=== PATIENT | female | born 1985 | race Two or more races ===

== ENCOUNTER 2022-11-29 12:12 | Outpatient (CLI) | payer OTHER, SELFPAY ==
--- NOTE | 2022-11-29 12:15 | CRLHL7_ITS ---
For Patients: As a result of the Century Cures Act, medical imaging exams and procedure reports are released immediately into your electronic medical record. You may view this report before your referring provider. If you have questions, please contact your health care provider. INDICATION: First trimester scan, establish dates. COMPARISON: None. TECHNIQUE: Real-time cristobal-scale imaging of the pelvis was performed. FINDINGS: Sonographic imaging demonstrates a single living intrauterine gestation. The embryo demonstrates a regular cardiac rate measuring 161 beats per minute. The embryo`s crown-rump length measurement of 2.7 cm corresponds to a gestational age of 9 weeks 3 days with a sonographic due date of 07/01/2023. There is a normal-appearing yolk sac. There are no gross abnormalities noted within the embryo at this early state of development. The gestational sac is somewhat prominent measuring 5.9 cm, 13 weeks 0 days and contains internal echoes. There is no evidence of a perigestational hemorrhage. The amount of fluid within the sac appears appropriate for gestational age. The cervix is closed. The myometrium appears normal. The ovaries are not visualized. There are no suspicious fluid collections noted in the cul-de-sac. IMPRESSION: Single living intrauterine with sonographic gestational age 9 weeks 3 days and sonographic due date of 07/01/2023. Gestational sac is disproportionately enlarged and contains internal echoes, of uncertain significance. Follow-up at 12 weeks may be useful. Dictated by Mehdi Lindsey MD @ 11/29/2022 1:03:10 PM (Electronically Signed)
== END 2022-11-29 12:13 | disposition home or self-care (01) ==
LOC: US 12:13
PROVIDERS: PCP Family Medicine; Visit Provider Physician Assistant
DX: Z34.91 Encounter for supervision of normal pregnancy, unspecified, first trimester (principal); Z3A.09 9 weeks gestation of pregnancy
CPT/HCPCS: 76817; 86592; 86703; 86762; 86787; 86803; 86850; 86900; 86901; 87086; 87340; 87491; 87591

== ENCOUNTER 2023-04-18 09:57 | Outpatient (CLI) | payer OTHER, SELFPAY | END 2023-04-18 09:58 | disposition home or self-care (01) | PROVIDERS: PCP Family Medicine; Visit Provider Obstetrics & Gynecology | DX: O26.892 Other specified pregnancy related conditions, second trimester (principal); Z67.91 Unspecified blood type, Rh negative | CPT/HCPCS: 86592; 86850; J2791 ==

== ENCOUNTER 2023-05-06 09:27 | Outpatient (RCR) | payer OTHER, SELFPAY | END 2023-07-22 14:16 | disposition home or self-care (01) | PROVIDERS: PCP Family Medicine; Visit Provider Obstetrics & Gynecology | DX: O99.891 Other specified diseases and conditions complicating pregnancy (principal); M54.50 Low back pain, unspecified; R26.2 Difficulty in walking, not elsewhere classified; R29.3 Abnormal posture; R53.1 Weakness; Z51.89 Encounter for other specified aftercare | CPT/HCPCS: 97110; 97161 ==

== ENCOUNTER 2023-05-07 08:30 | Outpatient (CLI) | payer OTHER, SELFPAY | END 2023-05-07 08:31 | disposition home or self-care (01) | LOC: NFLDREF 05-09 10:32 | PROVIDERS: PCP Family Medicine; Referring Provider Family Medicine; Visit Provider Obstetrics & Gynecology | DX: Z34.90 Encounter for supervision of normal pregnancy, unspecified, unspecified trimester (principal) | CPT/HCPCS: 82951; 82952 ==

== ENCOUNTER 2023-05-16 08:06 | Outpatient (CLI) | payer OTHER, SELFPAY ==
--- NOTE | 2023-05-16 08:15 | CRLHL7_ITS ---
For Patients: As a result of the Century Cures Act, medical imaging exams and procedure reports are released immediately into your electronic medical record. You may view this report before your referring provider. If you have questions, please contact your health care provider. INDICATION: History of macrosomia TECHNIQUE: Limited transabdominal two-dimensional cristobal-scale ultrasound examination. COMPARISON: None FINDINGS: There is a living fetus in vertex lie with gestational age of 32 weeks 6 days by LMP and 37 weeks by today`s measurements. EDC based on LMP is 07/05/2023. BPD: 8.9 cm, 36 weeks Head circumference: 32.9 cm, 37 weeks 3 days Abdominal circumference: 33.9 cm, 37 weeks 5 days Femur length: 7.2 cm, 36 weeks 6 days The weight is estimated at 3176 grams, greater than the 97th percentile. The heart rate is measured at 150 beats per minute and the rhythm appears regular. The amniotic fluid volume is within normal limits with single deepest pocket or 5.6 cm. The placenta is posterior a and superior to the cervical os. There is no evidence of previa. IMPRESSION: 1. Living fetus in vertex lie with gestational age of 32 weeks 6 days by LMP and 37 weeks by today`s measurements. EDC based on LMP is 07/05/2023. 2. weight estimated at 3176 grams, greater than the 97th percentile. Dictated by Keyur Wells MD @ 05/16/2023 12:44:39 PM (Electronically Signed)
== END 2023-05-16 08:07 | disposition home or self-care (01) ==
LOC: US 08:07
PROVIDERS: PCP Family Medicine; Visit Provider Obstetrics & Gynecology
DX: O36.63X0 Maternal care for excessive fetal growth, third trimester, not applicable or unspecified (principal); Z3A.32 32 weeks gestation of pregnancy
CPT/HCPCS: 76816

== ENCOUNTER 2023-06-16 12:17 | Outpatient (CLI) | payer OTHER, SELFPAY ==
--- NOTE | 2023-06-16 12:15 | US_ITS ---
Final Report Patient: DIXIE MARSH Facility:?[facility] Patient ID:?[id number] Site Patient ID:?[id number]. Site :?[id number] Study:? OB Pelvis growth check-06/16/2023 1:17:23 PM Ordering Physician:INOCENTE Final Report: INDICATION: Third trimester scan, evaluate growth. COMPARISON: 05/16/2023 TECHNIQUE: Real time cristobal scale imaging of the fetus was performed. FINDINGS: Sonographic imaging demonstrates a single living intrauterine gestation. Fetus demonstrates a regular cardiac rate of 137 beats per minute. Fetus has a vertex position. The placenta lies posteriorly. Amniotic fluid volume appears normal and there is a single deepest vertical pocket: 4.7 cm. The estimated weight is 4799gm which lies at the greater than 97th %. On the prior OB ultrasound exam dated 05/16/2023 the estimated weight was at the greater than 97th%. BPD and AC greater than 97th percentile. HC 97th percentile. FL 80th percentile. The HC/AC ratio measures 0.86 range (0.89-1.04). IMPRESSION: Sonographic gestational age 39 weeks 5 days and sonographic due date of 06/18/2023. Sonographic age 17 days ahead of the clinical age. Estimated weight greater than 97th percentile. BPD and AC greater than 97th percentile. Dictated by Mehdi Lindsey MD @ 06/17/2023 6:38:14 AM (Electronic Signature)
== END 2023-06-16 12:18 | disposition home or self-care (01) ==
LOC: US 12:17
PROVIDERS: PCP Family Medicine; Visit Provider Obstetrics & Gynecology
DX: Z34.93 Encounter for supervision of normal pregnancy, unspecified, third trimester (principal); O36.63X0 Maternal care for excessive fetal growth, third trimester, not applicable or unspecified; Z3A.39 39 weeks gestation of pregnancy
CPT/HCPCS: 76816

== ENCOUNTER 2023-06-16 14:11 | Outpatient (CLI) | payer OTHER, SELFPAY | END 2023-06-16 14:12 | disposition home or self-care (01) | LOC: NFLDREF 06-17 15:24 | PROVIDERS: PCP Family Medicine; Referring Provider Family Medicine; Visit Provider Obstetrics & Gynecology | DX: Z34.90 Encounter for supervision of normal pregnancy, unspecified, unspecified trimester (principal) | CPT/HCPCS: 87081; 87653 ==

== ENCOUNTER 2023-06-30 05:32 | Inpatient (IN) | payer OTHER, SELFPAY ==
[2023-06-30] VITALS (32 sets, daily range): BP systolic 102–146; BP diastolic 59–92; PULSE 66–110; RESP 16; TEMP 36.5–36.9; O2SAT 95–98; BMI 40.3
[2023-06-30] MEDS: LACTATED RINGERS 1000 ML 1,000 ML 900 ML IV ×3 (06:15→07:59)
[2023-06-30 06:19] LABS: Hemoglobin* 12.7 gm/dL (12.0-16.0)
--- NOTE | 2023-06-30 07:06 | P.OBHP_ITS ---
OB - H&P: HPI History of Present Illness Chief complaint: Maternity Narrative: Radha Gomez is a 37 year old female here for scheduled delivery. Concern(s) this visit: None. Active movement. Denies Ctx, LOF, vaginal bleeding or abnormal vaginal discharge. No interval changes since the last time we spoke. Her full H&P was dictated by myself on 06/23/23. Specific Issues/Plans Spouse: Keyur. Children: Carmine Schrader. Baby: Boy! 1. Rh-negative status RhoGAM:04/18/23 2. History of macrosomia 1st baby 10 lb 1 oz 3. AMA Cell free DNA: Declined initially, 02/17 elected to screen:neg Level 2 ultrasound: 02/04/2023: Unremarkable exam w/ [facility]; EFW 99%ile 4.Obesity, BMI 36.6 Hemoglobin A1c: 5.2 MFM recommends: 32 week growth US: ordered on 04/18/23 Weekly testing starting at 37 weeks 5. Gestational Diabetes (GDMA1 at this time) 6. Suspected macrosomia - EFW 3176g, >97%ile at 32w6d [x] s/p nutrition [x] discussed risk of shoulder dystocia, convo regarding C/S if EFW >4500g w/ GDM on 05/16 [x] 37 week growth US Flu shot:02/17/23 Covid shot: vaccinated, declined update this year Tdap: 05/02/23 RSV:Declined H&P: 06/23/[address] Laird [facility] Medical History Rh negative, maternal ?O26.899 - Other specified related conditions, unspecified trimester (ICD-10) ?Z67.91 - Unspecified blood type, rh negative (ICD-10) Surgical History Vaginal delivery ?O80 - Encounter for full-term uncomplicated delivery (ICD-10) Status post laparoscopic cholecystectomy (2015) ?Z90.49 - Acquired absence of other specified parts of digestive tract (ICD- 10) Family History Father Diabetes High blood pressure Mother High blood pressure Lung cancer Maternal Grandfather Stroke Colon cancer Social History (Updated 11/29/22 @ 13:28 by Marcie Cardoso PA-C) Narrative: History of blood transfusion: No. SOCIAL HISTORY: Occupation: events administrative assistant. Marital status: . Latter-Day/cultural needs: no. Chemical or radiation exposure: no. Pre- tobacco use: no. Pre- alcohol use: no. Current tobacco use: no. Current alcohol use: no. Recreational drug use: no. Dietary restrictions: no. Blood transfusion acceptable in an emergency: yes. FAMILY AND GENETIC HISTORY: Negative for recurrent loss, defects, inheritable disease. Please also see problem list. Patient will be 37 at time of delivery PSYCHOSOCIAL HISTORY: History of depression or currently depression: no. Current or past physical, emotional, or sexual mistreatment: no. Problems that will make it hard to make it to appointments: no. What is your current living situation?: I presently have a place to live Problems where you live: no known problems In the past 12 months, utilities in danger of being shut off: no In past 12 months, lack of transportation kept you from medical appts, meetings, work, or getting things needed for daily living: no In the past 12 mos, have been you worried that your food would run out before you had money to buy more?: never true In the past 12 mos, the food you bought just didn't last and you didn't have money to buy more?: never true Smoking Status: Never smoker How often does anyone, including family, friends and others, physically hurt you : never How often does anyone, including family, friends and others, insult or talk down to you: never How often does anyone, including family, friends and others, threaten you with harm: never How often does anyone, including family, friends and others, scream or curse at you: never Little interest or pleasure in doing things: not at all Feeling down, depressed, or hopeless: not at all Meds Home Medications and Allergies Home Medications Medication Instructions Recorded Confirmed Type docosahexaenoic acid 200 mg mg PO 11/29/22 06/23/23 History capsule ( DHA) famotidine 10 mg tablet 10 mg PO QDAY 04/18/23 06/30/23 History (Zantac-360 (famotidine)) Allergies Allergy/AdvReac Type Severity Reaction Status Date / Time No Known Drug Allergies Allergy Verified 06/23/23 08:54 OB - H&P: Exam Physical Exam: Vital signs: Pulse BP Pulse Ox 110 H 102/78 97 06/30/23 05:54 06/30/23 05:54 06/30/23 05:58 Narrative: Physical exam: General: No acute distress Psych: Alert and oriented x3, full affect HEENT: Normocephalic, atraumatic Lungs: Unlabored breathing Neuro: No focal deficit. Mentating appropriately Abdominal: Gravid. Soft, nontender, no rebound or guarding. Cephalic presentation. Pelvic exam: Deferred OB - Results Labs Labs: Short CBC 06/30/23 Range/Units 06:10 Hgb 12.7 (12.0-16.0) gm/dL Assessment and Plan Assessment and plan (1) macrosomia: Status: Acute (2) Gestational diabetes: Status: Acute (3) : Status: Acute (4) Obesity: Status: Acute (5) Rh negative, maternal: Status: Chronic (6) Advanced maternal age in multigravida: Status: Acute Plan - Discussed delivery plan. Consent reviewed. All questions answered - Hgb 12.7 gm/dL, plt 271 K/uL - Will proceed with planned delivery
[2023-06-30] MEDS: CEFAZOLIN 1 GM inj 3 GM IVP (07:30)
--- NOTE | 2023-06-30 07:56 | W.ANESCHARGE ---
Anesthesia Charges Start Date/Time Anesthesia Start Date: 06/30/23 Anesthesia Start Time: 07:15 Stop Date/Time Anesthesia Stop Date: 06/30/23 Anesthesia Stop Time: 08:47
[2023-06-30] MEDS: KETOROLAC 15 MG/ML inj IVP (08:04)
--- NOTE | 2023-06-30 08:24 | W.ANESCHARGE ---
Anesthesia Charges Start Date/Time Anesthesia Start Date: 06/30/23 Anesthesia Start Time: 07:15 Stop Date/Time Anesthesia Stop Date: 06/30/23 Anesthesia Stop Time: 08:47
--- NOTE | 2023-06-30 08:42 | PM.OBPRCCS ---
Procedure Time Seen by Provider: 08:42 Date of procedure: 06/30/23 Procedure Done: Global Will [facility] bill your pro fee for this procedure?: Yes Procedure Description: DELIVERY BY SECTION Date of Service: 06/30/2023 Delivery time: 743 Summary: Admitted for scheduled delivery at 39.2 weeks due to anticipated macrosomia greater than 4500 g in setting of gestational diabetes, primary lower uterine transverse section, Pfannenstiel, Closed with sutures, QBL 600 cc, no complications, Findings: Normal uterus - large vessels noted near the lower uterine segment, normal bilateral ovaries and tubes. 9/9, weight 4520 g. Primary Indication: Anticipated macrosomia greater than 4500 g in the setting of gestational diabetes Procedures: Primary Lower uterine transverse section Specimens Removed: Placenta Surgeon: Lindsey Laird MD Anesthesia: Spinal and TAP block Report: Prophylactic antibiotic, 3 g of Ancef was given before patient was taken to OR. After arrival to the operating room patient was placed in the supine position with left lateral tilt after administration of spinal anesthesia. Laparotomy A pfannenstiel incision was made through the anterior abdominal wall with #10 scalpel approximately 2 cm above the pubic symphysis. The incision was extended sharply with the #10 scalpel through the subcutaneous tissue to the level of fascia. The fascia was entered sharply with a #10 scalpel (Pfannenstiel) in the midline and extended in semi-elliptical fashion with digits. The rectus muscles were in the midline bluntly with digits. The peritoneum was then entered bluntly. The peritoneal incision was then extended superiorly and inferiorly under direct visualization with care being taken to avoid bladder and bowel. No adhesions were noted. Patient had large vessel near the lower uterine segment. The peritoneal incision was enlarged bluntly by lateral traction from the surgeon's and medical record assistant's hand. Barrington retractor was inserted into the abdomen. Delivery Bladder flap was not developed passed bladder was low off of lower uterine segment. A low transverse hysterotomy was made then with #10 scalpel and extended laterally and cephalad with fingers in a low transverse fashion with Manu Jeff technique with care being taken to avoid injury to the fetus. The amniotic cavity (membrane) was then entered with spontaneous rupture of membrane, and the amniotic fluid was noted to be clear, fetus was delivered cephalic. With delivery of the baby, no extension was noted. Placenta was delivered spontaneously with steady traction on cord. Pitocin was stopped to facilitate the delivery of the placenta as the uterus was very contracted. After brief cessation of Pitocin, the placenta delivered easily. Closure Uterine cavity was cleaned after placental delivery with lap sponge x 3. The hysterotomy was closed in 2 layers with stitches using 0 vicryl with continuous locking stitches and 0 Monocryl in a continuous nonlocking fashion. There was an expanding hematoma that was approximately 2 cm close the to left hysterotomy angle. This was suture ligated with 3 gkrzak-ol-[place] stitches. After suture ligation, the hematoma was stable. One hvdcnt-nl-splar was placed at the right hysterotomy angle. Hemostasis was achieved as needed with electrocautery. The ovaries/tubes/uterine surface were evaluated. They were found to be normal. Barrington retractor removed and hemostasis was confirmed again. Fascia was closed with running stitches using 0 Vicryl. Subcutaneous layer was irrigated. Hemostasis was checked for and found to be adequate. The subcutaneous layer was closed with running 2-0 Vicryl sutures. The skin was closed with monocryl subcuticular sutures . The incision was cleaned and so a dressing applied and the procedure considered terminate at this time. Intraoperative Complications: None QBL: 600 cc Uterotonics: 40u of Pitocin and 1g of TXA Disposition: The patient tolerated the procedure well. She was recovered in Obstetric PACU for close monitoring in stable condition, with a contracted uterus and normal transvaginal bleeding. The infant was sent to mother?s bedside/PACU. The placenta was sent to pathology due to gestational diabetes. Debrief with OR team performed and specimen reviewed at the conclusion of the procedure. Pathology: specimen obtained, sent to pathology (Placenta ) [place] Infant total score - 1 minute: 9 total score - 5 minute: 9
--- NOTE | 2023-06-30 09:11 | W.PM.NB ---
Nerve Block Nerve Block Time Seen by Provider: 08:38 Date Seen: 06/30/23 Type of block requested by surgeon for post-operative analgesia: TAP Side: bilateral Time out performed: Yes Verification of patient name: Yes Verification of date of : Yes Site marking: site marked Name of person performing procedure: Terry Continuous monitoring Was continuous monitoring of O2 sat, B/P, shelter monitor, recorded every 15 minutes?: Yes Procedure Checklist: sterile prep, needles and gloves Ultrasound guided. Images saved: Yes Medications given in 5ml increments after negative aspiration: Marcaine %: 0.25 mL: 30 Needle gauge: 20 and Exparel mL: 10 Patient tolerated procedure well: Yes Additional comments: Needle noted between internal oblique and transversus abdominus. Local spread visualized Block Charges Block Charge (with Pro Fee): TAP Bilateral Use of Ultrasound Machine for Block: Yes- US Guidance/pain block
[2023-06-30] MEDS: KETOROLAC 30 MG/ML inj IVP ×2 (14:13→20:55)
[2023-06-30] MEDS: ACETAMINOPHEN 500 MG TABLET 1000 MG PO ×2 (16:57→23:29)
[2023-07-01] VITALS (13 sets, daily range): BP systolic 104–116; BP diastolic 73–80; PULSE 62–86; RESP 16; TEMP 36.2–36.8; O2SAT 95–99
[2023-07-01] MEDS: KETOROLAC 30 MG/ML inj IVP ×3 (02:24→14:35)
[2023-07-01] MEDS: ACETAMINOPHEN 500 MG TABLET 1000 MG PO ×3 (05:07→20:45)
[2023-07-01 07:06] LABS: Hemoglobin* 11.5 gm/dL (12.0-16.0)
[2023-07-01] MEDS: DOCUSATE SODIUM 100 MG CAPSULE PO (07:56)
--- NOTE | 2023-07-01 08:15 | PM.OBPNVD1 ---
Documented by User: Willie Hassan 07/01/23 08:33 OB - PN:Subj Subjective Time Seen by Provider: 08:15 Date Seen: 07/01/23 Patient comments OB post-: no complaints, pain well controlled, tolerating diet and flatus present feeding status: exclusively Narrative: Pt is Post OP day 1. ?She had an uncomplicated primary .?The patient feels well. ?The pain is well controlled with current medications. ?She has no new complaints. ?She is breast feeding independently. the patient has done well.? Vitals have been stable.? She has remained afebrile.? Has a good appetite, is tolerating a general diet. ?She is voiding without difficulty.? She is passing gas and had no bowel movement.? She is ambulating and denies any dizziness.? Has Small amount of rubra lochia. ?She is planning IUD for Control. OB - PN: Obj Exam Physical Exam: Vital signs: Temp Pulse Resp BP Pulse Ox O2 Del Method 97.2 F L 77 16 104/73 95 Room Air 07/01/23 05:00 07/01/23 05:00 07/01/23 06:43 07/01/23 05:00 07/01/23 05:00 07/01/23 05:00 Narrative: GENERAL APPEARANCE:? normal affect, alert, no distress MOOD:? appropriate CHEST:? clear to auscultation HEART:? regular rate and rhythm ABDOMEN:? soft, non-tender the uterine fundus At Umbilicus, Midline and is appropriate for the stage of recovery. EXTREMITIES:? normal and no edema Incision: Dressing in place. Clean and dry. Constitutional: Constitutional: no acute distress Urinary Catheter Management: Urethral: Cath placed during this visit: yes, but has since been removed by the nurse Reason for continuing: decision to DC catheter Insertion date: 06/30/23 Insertion time: 07:35 Removal date: 06/30/23 Removal time: 17:00 OB - PN: Obj Data Labs Labs: Laboratory Results - last 24 hr 06/30/23 07/01/23 06:10 06:46 Hgb 11.5 L Antibody Screen POSITIVE OB - PN: A/P Delivery Assessment and Plan (1) Delivery by section: Status: Acute (2) care and examination of lactating mother: Status: Acute (3) Gestational diabetes: Status: Acute (4) Rh negative, maternal: Status: Chronic (5) Lactating mother: Status: Acute Plan Post Op Day 1 Doing well Anticipate Discharge 1-2 days Plan Plan: routine care Documented by User: Radha Menon CNM 07/01/23 10:17 OB - PN: Obj Exam Physical Exam: Narrative: GENERAL APPEARANCE:? normal affect, alert, no distress MOOD:? appropriate CHEST:? clear to auscultation HEART:? regular rate and rhythm ABDOMEN:? soft, non-tender the uterine fundus At Umbilicus, Midline and is appropriate for the stage of recovery. EXTREMITIES:? normal and no edema INCISION: Dressing in place. Clean and dry. Urinary Catheter Management: Urethral: Cath placed during this visit: yes, but has since been removed by the nurse OB - PN: A/P Delivery Assessment and Plan (1) Delivery by section: Status: Acute (2) care and examination of lactating mother: Status: Acute (3) Gestational diabetes: Status: Acute (4) Rh negative, maternal: Status: Chronic (5) Lactating mother: Status: Acute Plan Post Op Day 1 Doing well Anticipate Discharge 1-2 days I,?Radha Menon APRN, CNM, was present for visit and have reviewed and agree with documentation by the Certified Nurse Midwifery Student.
--- NOTE | 2023-07-01 11:07 | PM.ANPOST ---
Post Anesthesia Note Post Anesthesia Note Patient seen: Inpatient Respiratory Status: adequate Cardiovascular Status: adequate Mental Status: baseline Pain: adequate Temp: baseline Anesthetic awareness: N/A Complications: none Follow care: none
[2023-07-01] MEDS: IBUPROFEN 600 MG TABLET PO (18:49)
[2023-07-01 23:54] LABS: Rapid Plasma Reagin (RPR) Non Reactive (Non Reactive)
[2023-07-02 01:45] VITALS: BP 109/75; PULSE 78; RESP 16; TEMP 36.6; O2SAT 96
[2023-07-02] MEDS: IBUPROFEN 600 MG TABLET PO (01:51)
--- NOTE | 2023-07-02 08:43 | PM.OBDSVD1 ---
DS: Providers Provider Date Seen: 07/02/23 Date of admission: 06/30/23 05:32 Primary care physician: Amado Velez MD Admitting Clinician: Lindsey Laird MD Attending Physician on discharge: Lindsey Laird MD Date of Discharge: 07/02/23 DS: Diagnosis Discharge Diagnosis (1) Lactating mother: Status: Acute (2) Delivery by section: Status: Acute (3) care and examination of lactating mother: Status: Acute (4) Gestational diabetes: Status: Acute (5) Advanced maternal age in multigravida: Status: Acute (6) Obesity: Status: Acute (7) Rh negative, maternal: Status: Chronic (8) macrosomia: Status: Acute Exam Narrative: Exam Narrative: GENERAL APPEARANCE:? normal affect, alert, no distress? MOOD:? appropriate? CHEST:? clear to auscultation and percussion? HEART:? regular rate and rhythm? ABDOMEN:? soft, non-tender the uterine fundus is U/2 and is appropriate for the stage of recovery.?Dressing clean dry and intact. EXTREMITIES:? normal and no edema? Const: Vital Signs, click to edit/add: Vital Signs - 24 hr 07/01/23 12:51 07/01/23 15:51 07/01/23 16:44 Temperature 98.3 F 98.1 F 98.1 F Pulse Rate 86 Pulse Rate [Pulse Oximeter] 81 86 Respiratory Rate 16 16 16 Blood Pressure 116/80 Blood Pressure [Ri ght Arm] 111/75 116/80 Pulse Oximetry 98 98 98 Oxygen Delivery Me thod Room Air Room Air 07/02/23 01:45 Temperature 98 F Pulse Rate Pulse Rate [Pulse Oximeter] 78 Respiratory Rate 16 Blood Pressure Blood Pressure [Ri ght Arm] 109/75 Pulse Oximetry 96 Oxygen Delivery Me thod Room Air Documenting provider has reviewed patient's vital signs: yes OB - DS: Summary Hospital Course Hospital Course: The patient is a 37 year old G 4 P 3 at 39.2 weeks gestation that was admitted to the Center on 06/30/23 for primary cearean delivery for suspected macrosomia (greater than 4500g) and gestational diabetes. She had an uncomplicated delivery. She delivered a viable male infant. She is breast feeding and states that it is going good. the patient has done well. The patient feels well.? The pain is well controlled with current medications.? She has no new complaints.? Urinary output is adequate and she is voiding without difficulty.? Has a good appetite, is tolerating a general diet, is passing flatus, and has had a bowel movement.? Has small amount of rubra lochia.? She is ambulating well.?She is planning a Mirena IUD for control. Peripartum Data Infant delivery method: Primary C/S; Non-Labored Procedures: Procedures Operation Date: 06/30/23 07:15 Actual Procedure Side Surgeon p Primary Section Lindsey Laird MD complications: none [place] Gender: Male Discharge Plan: Home Status at Discharge Functional status at discharge: independent ambulation Overall status at discharge: patient is progressing back to baseline Time Spent with Patient Time attestation: Total time spent providing and/or coordinating discharge services: Discharge Plan Discharge Disposition: Home, Self-Care Date of Admission: 06/30/23 05:32 Attending Provider on Discharge: Francia Tellez Primary Care Provider: Amado Velez Condition: Stable Anticipated Discharge Date/Time: 07/02/23 12:00 Discharge Medications: New ibuprofen 600 mg Tablet 600 mg PO Q6H PRN (Reason: Pain) Qty: 90 0RF docusate sodium 100 mg Capsule 100 mg PO DAILY Qty: 90 0RF oxycodone 5 mg Tablet 5 - 10 mg PO Q4H PRN (Reason: Pain) Qty: 7 0RF Continued DHA 200 mg capsule 200 mg PO DAILY famotidine [Zantac-360 (famotidine)] 10 mg tablet 10 mg PO QDAY triamcinolone acetonide 0.05 % ointment 1 applic topical BID PRN (Reason: itching) Qty: 110 0RF No Action (DME) Test Strips Misc See Rx Instructions .MEDSUPPLY Qty: 100 3RF Rx Instructions: Test blood sugar 4 times daily. (DME) lancets Misc See Rx Instructions .MEDSUPPLY Qty: 100 3RF Rx Instructions: Test blood sugar 4 times daily. (DME) Blood Glucose Meter Misc See Rx Instructions .MEDSUPPLY Qty: 1 0RF Rx Instructions: As directed Discharge Orders: Discharge Order (Routine); Ordered 07/02/23 Ordered By: Francia Tellez Patient Education: OB /Breast Feeding Additional Instructions: Discharge instructions were reviewed with the patient including signs and symptoms of infection and home going medications? ?? Activity restrictions:? Lifting Restrictions: 20 pounds for 6 weeks? No high-impact or core exercises for 6 weeks.?? No not submerge incision under water X 2 weeks?? Nothing vaginally for 6 weeks: no tampons or intercourse? Do not drive while taking narcotic pain medication(s)? Off Work or School for 8 weeks? ?? Symptoms to report to doctor:? -Bleeding that saturates more than one pad per hour? -Passing clots larger than the size of a golf ball? -Pain not relieved by prescribed medication? -Fever above 100.4 degrees Fahrenheit? -A foul vaginal odor? -Difficulty in emotions, mood and functions? -Thoughts of hurting yourself and/or ? -Painful, reddened area in your breast? -Any drainage, redness or tenderness in your IV/epidural site? -Severe headache that doesn't improve after taking medications? -Changes in vision, including temporary loss of vision, blurred vision, and/or light sensitivity? -Upper abdominal pain (usually under ribs on the right side)? -Decrease in urination or painful, frequent urinating? -Chest pain? -Shortness of breath? -Tenderness or pain with redness and/swelling in the calf(s) of your leg? Follow up visits:?? 1. 1 week visit:? incision check and dressing removal.? 2. 2-week visit: discuss feeding/care concerns, review control options and screen for anxiety/depression.? 3. 6-week visit for an annual exam.? ?? consultation services are available to all mothers and babies for the first year after delivery.? To make an appointment, please call [phone].? Follow Up Appointments: [facility] [Provider Group] Forms: [facility] Info Instructions
[2023-07-02 09:03] VITALS: BP 121/81; PULSE 85; RESP 16; TEMP 36.8; O2SAT 95
[2023-07-02] MEDS: ACETAMINOPHEN 500 MG TABLET 1000 MG PO (09:26)
== END 2023-07-02 13:55 | disposition home or self-care (01) | DRG 788 ==
PROVIDERS: Admitting Provider Obstetrics & Gynecology; PCP Family Medicine; Visit Provider Obstetrics & Gynecology
PROC: 10D00Z1 Extraction of Products of Conception, Low, Open Approach (ICD-10-PCS; CPT 59514; principal; 2023-06-30 07:15)
DX: O36.63X0 Maternal care for excessive fetal growth, third trimester, not applicable or unspecified (principal); O24.420 Gestational diabetes mellitus in childbirth, diet controlled; O99.214 Obesity complicating childbirth; G89.18 Other acute postprocedural pain; O26.893 Other specified pregnancy related conditions, third trimester; Z67.11 Type A blood, Rh negative; Z37.0 Single live birth; Z3A.39 39 weeks gestation of pregnancy
CPT/HCPCS: 01961; 36415; 36430; 64488; 76942; 82962; 85018; 85461; 86592; 86850; 86870; 86880; 86900; 86901; 88307; A9270; C9290; J0665; J0690; J1650; J1885; J2274; J2371; J2405; J2590; J2791; J7120

== ENCOUNTER 2023-08-11 08:24 | Outpatient (CLI) | payer OTHER, SELFPAY | END 2023-08-11 08:25 | disposition home or self-care (01) | LOC: NFLDREF 08-13 07:42 | PROVIDERS: PCP Family Medicine; Referring Provider Family Medicine; Visit Provider Physician Assistant | DX: Z01.812 Encounter for preprocedural laboratory examination (principal); O24.419 Gestational diabetes mellitus in pregnancy, unspecified control | CPT/HCPCS: 82947; 82950 ==